=== PATIENT | female | born 1960 | race Caucasian/White ===

== ENCOUNTER 2019-04-20 09:57 | Emergency (ER) | payer BC, OTHER ==
[2019-04-20] MEDS ORDERED: HYDROmorphone 2 MG/ML SDV IVPUSH ONE (10:06)
[2019-04-20] MEDS ORDERED: Sodium Chloride 0.9% 10 ML Syringe FLUSH PRN (10:07)
--- NOTE | 2019-04-20 10:11 | EDM.PDOC ---
ED HPI GENERAL MEDICAL PROBLEM - General Chief Complaint: Abdominal Pain Stated Complaint: PAIN Time Seen by Provider: 04/20/19 10:03 Source of Information: Reports: Patient History Limitations: Reports: No Limitations - History of Present Illness INITIAL COMMENTS - FREE TEXT/NARRATIVE: Isabel comes into [facility] ED with sudden onset of R flank pain this am. Pain is colicky, feels deep, and is associated with some nausea. There is no injury hx, and no PMH of stone disease. There is no hematuria visible, urgency or frequency. She has tried no meds. - Related Data Allergies Allergy/AdvReac Type Severity Reaction Status Date / Time No Known Allergies Allergy Verified 04/20/19 10:06 Past Medical History Cardiovascular History: Reports: Hypertension Endocrine/Metabolic History: Reports: Diabetes, Type II ED ROS GENERAL - Review of Systems Review Of Systems: Comprehensive ROS is negative, except as noted in HPI. ED EXAM, RENAL/ - Physical Exam Exam: See Below Exam Limited By: No Limitations General Appearance: Alert, WD/WN, Moderate Distress Head: Normocephalic Neck: Normal Inspection, Supple, Non-Tender Respiratory/Chest: Lungs Clear, Chest Non-Tender Cardiovascular: Regular Rate, Rhythm, No Murmur GI/Abdominal: Normal Bowel Sounds, Soft, No Organomegaly, No Distention, No Mass , Tender (R midabdomen with guarding, no suprapubic tenderness, no CVA tenderness) (Female) Exam: Deferred Rectal (Female) Exam: Deferred Back Exam: Normal Inspection Extremities: Normal Inspection Neurological: Alert, Oriented, CN II-XII Intact, Normal Cognition, No Motor/ Sensory Deficits Psychiatric: Normal Affect, Anxious Skin Exam: Warm, Dry, Intact, Normal Color Lymphatic: No Adenopathy Course - Vital Signs Text/Narrative:: Following assessment, I obtained an Abd Pelvic CT wo contrast: 1.2 mm stone R ureter, minimal hydronephrosis; the CBC and BMP were baseline; UA pending. I adminstered Dilaudid 2 mg IV and 1 L NS during ED visit. Last Recorded V/S: Last Vital Signs Temp 36.2 C 04/20/19 10:00 Pulse 72 04/20/19 11:24 Resp 20 04/20/19 11:24 BP 162/88 H 04/20/19 11:24 Pulse Ox 99 04/20/19 11:24 - Orders/Labs/Meds Orders: Active Orders 24 hr Category Date Time Status Abdomen Pelvis wo Cont [CT] Stat Exams 04/20/19 10:08 Taken Sodium Chloride 0.9% [Normal Saline] 1,000 ml Med 04/20/19 10:15 Active IV ASDIRECTED Sodium Chloride 0.9% [Saline Flush] Med 04/20/19 10:07 Active 10 ml FLUSH ASDIRECTED PRN Peripheral IV Insertion Adult [OM.PC] Routine Oth 04/20/19 10:07 Ordered Medication Orders Sodium Chloride (Normal Saline) 1,000 mls @ 500 mls/hr IV ASDIRECTED JELENA Last Admin: 04/20/19 10:15 Dose: 500 mls/hr Sodium Chloride (Saline Flush) 10 ml FLUSH ASDIRECTED PRN PRN Reason: Keep Vein Open Last Admin: 04/20/19 10:05 Dose: 10 ml Labs: Laboratory Tests 04/20/19 04/20/19 Range/Units 10:25 10:25 WBC 4.6 (4.5-12.0) X10-3/uL RBC 4.21 (3.23-5.20) x10(6)uL Hgb 13.3 (11.5-15.5) g/dL Hct 39.3 (30.0-51.3) % MCV 93.4 (80-96) fL MCH 31.5 (27.7-33.6) pg MCHC 33.7 (32.2-35.4) g/dL RDW 12.5 (11.5-15.5) % Plt Count 236 (125-369) X10(3)uL MPV 7.2 L (7.4-10.4) fL Neut % (Auto) 60.9 (46-82) % Lymph % (Auto) 31.1 (13-37) % [place] % (Auto) 5.0 (4-12) % Eos % (Auto) 3 (1.0-5.0) % Baso % (Auto) 1 (0-2) % Neut # (Auto) 2.9 (1.6-8.3) # Lymph # (Auto) 1.4 (0.6-5.0) # [place] # (Auto) 0.2 (0.0-1.3) # Eos # (Auto) 0.1 (0.0-0.8) # Baso # (Auto) 0.0 (0.0-0.2) # Sodium 140 (135-145) mmol/L Potassium 4.1 (3.5-5.3) mmol/L Chloride 102 (100-110) mmol/L Carbon Dioxide 24 (21-32) mmol/L BUN 18 (7-18) mg/dL Creatinine 1.1 H (0.55-1.02) mg/dL Est Cr Clr Drug Dosing TNP Estimated GFR (MDRD) 51 L (>60) BUN/Creatinine Ratio 16.4 (9-20) Glucose 304 H (80-116) mg/dL Calcium 9.5 (8.6-10.2) mg/dL Meds: Medications Generic Name Dose Route Start Last Admin Trade Name Freq PRN Reason Stop Dose Admin Sodium Chloride 1,000 mls @ 500 mls/hr 04/20/19 10:15 04/20/19 10:15 Normal Saline IV 500 mls/hr ASDIRECTED JELENA Administration Sodium Chloride 10 ml 04/20/19 10:07 04/20/19 10:05 Saline Flush FLUSH 10 ml ASDIRECTED PRN Administration Keep Vein Open Discontinued Medications Generic Name Dose Route Start Last Admin Trade Name Freq PRN Reason Stop Dose Admin Hydromorphone HCl 2 mg 04/20/19 10:06 04/20/19 10:15 Dilaudid IVPUSH 04/20/19 10:07 2 mg ONETIME ONE Administration Departure - Departure Time of Disposition: 12:03 Disposition: Home, Self-Care 01 Condition: Fair Clinical Impression: Ureterolithiasis - Discharge Information *PRESCRIPTION DRUG MONITORING PROGRAM REVIEWED*: Not Applicable *COPY OF PRESCRIPTION DRUG MONITORING REPORT IN PATIENT GOPI: Not Applicable Referrals: PCP,None [Primary Care Provider] - Forms: ED Department Discharge Sepsis Event Note - Focused Exam Vital Signs: Vital Signs Temp Pulse Resp BP Pulse Ox 04/20/19 11:24 72 20 162/88 H 99 04/20/19 10:20 71 18 160/83 H 100 04/20/19 10:00 36.2 C 75 18 155/131 H 100 Date Exam was Performed: 04/20/19 Time Exam was Performed: 12:01 - Problem List & Annotations (1) Ureterolithiasis SNOMED Code(s): 37754752 Code(s): N20.1 - CALCULUS OF URETER Status: Acute Current Visit: Yes Annotation/Comment:: I suggested fluid intake, strain all urine, and dispensed Hydrocodone 5/325 #4 for breakthrough pain. - Problem List Review Problem List Initiated/Reviewed/Updated: Yes - My Orders Last 24 Hours: My Active Orders 04/20/19 10:07 Sodium Chloride 0.9% [Saline Flush] 10 ml FLUSH ASDIRECTED PRN Peripheral IV Insertion Adult [OM.PC] Routine 04/20/19 10:08 Abdomen Pelvis wo Cont [CT] Stat 04/20/19 10:15 Sodium Chloride 0.9% [Normal Saline] 1,000 ml IV ASDIRECTED - Assessment/Plan Last 24 Hours: My Active Orders 04/20/19 10:07 Sodium Chloride 0.9% [Saline Flush] 10 ml FLUSH ASDIRECTED PRN Peripheral IV Insertion Adult [OM.PC] Routine 04/20/19 10:08 Abdomen Pelvis wo Cont [CT] Stat 04/20/19 10:15 Sodium Chloride 0.9% [Normal Saline] 1,000 ml IV ASDIRECTED Plan: Follow up with PCP.
[2019-04-20] MEDS ORDERED: Sodium Chloride 0.9% 1,000 ML IV SCH (10:15)
[2019-04-20] MEDS ORDERED: Acetaminophen/HYDROcodone 325-5 MG Tab PO ONE (12:06)
== END 2019-04-20 12:25 | disposition home or self-care (01) ==
LOC: FB.ED 09:57
DX: N13.2 Hydronephrosis with renal and ureteral calculous obstruction (principal); I10 Essential (primary) hypertension; E11.9 Type 2 diabetes mellitus without complications
CPT/HCPCS: 36415; 74176; 80048; 85025; 96361; 96374; 99284; A9270; J1170; J7030